=== PATIENT | female | born 1955 | race Caucasian/White ===

== ENCOUNTER 2018-01-14 06:20 | Day surgery (SDC) | payer OTHER ==
[~2018-01-14] VITALS: Ht 152.4 cm; Wt 91.2 kg
[~2018-01-14 06:20] MED LIST: ACETAMINOPHEN325 M1 PO; DSS100 MG PO; ESTROVEN REGU400 MCG PO; FOLGARD TABLET1 EAC1 PO; HYDROCHLOROTHIA25 MG PO; IBUPROFEN200 MG PO; IBUPROFEN800 MG PO; IRON18 MG PO; MINERAL OIL30 ML AD; MULTIVITAMINS1 EAC7 PO; NORCO 5-325 TA1 EACH PO; NORCO 7.5-3251 EACH PO; ONDANSETRON ODT4 MG PO; SENOKOT-S TABL1 EACH PO; SULINDAC200 MG PO; VITAMIN B125000 MCG PO; VITAMIN D1000 UNIT PO; VITAMIN D35000 UNIT PO; XARELTO20 MG PO; [UNRECOGNIZED DRUG - OTHER] PO
--- NOTE | 2018-01-14 08:04 | NUR ---
01/14/18 0804 Jayshree Munguia 0800 PT ARRIVED IN PACU SLEEPY WITH NO C/O'S. ABD SOFT AND PASSING FLATUS.
--- NOTE | 2018-01-14 09:15 | OR ---
[facility] [address] [place], [place] [address] Signed DATE OF OPERATION: 01/14/2018 SURGEON: Celia Whaley MD PREOPERATIVE DIAGNOSIS: History of adenomatous polyp of rectum, 2012. POSTOPERATIVE DIAGNOSIS: Sigmoid diverticulosis. PROCEDURE: Total colonoscopy to cecum. ANESTHESIA: Intravenous sedation fentanyl 100 mcg, Versed 4 mg. INDICATION: This 62-year-old white woman is a patient of Dr. Nadira Roy at the [place] [place] as well as Dr. Antoine Maharaj and Dr. Jane Metz locally. She underwent colonoscopy in 2012 where she was found to have an adenomatous polyp of the rectum. She is symptom-free at this time, but is here for surveillance colonoscopy. She understands the risks of bleeding, infection, and perforation and wished to proceed. FINDINGS: The prep was excellent. Complete colonoscopy was undertaken to the cecum without question. There were several diverticula of the sigmoid, but no sign of recurrent or new polyp. DESCRIPTION OF PROCEDURE: The patient was brought to the endoscopy suite and placed in the lateral decubitus position, given intravenous sedation to the point of slurred speech and nystagmus. Digital rectal examination was normal. An Olympus video colonoscope was passed in the rectum and manipulated throughout the colon, ultimately intubating the cecum itself. The ileocecal valve and appendiceal orifice were normal. Photographs were taken. The scope was carefully withdrawn from that point and examination throughout undertaken showed no sign of polyps, but did show diverticular changes of the sigmoid. The rectum was normal. There was no sign of recurrent polyp. The scope was removed and the patient was taken to recovery room in good condition. Electronically Signed By: CELIA WHALEY MD 01/14/18 0915 PATIENT NAME: ANILA DE LUNA OPERATIVE REPORT DATE OF : 57 REPORT #: [id number] PHYSICIAN: CELIA WHALEY MD PCP: ANTOINE MAHARAJ MD REPORT IS CONFIDENTIAL AND NOT TO BE RELEASED WITHOUT AUTHORIZATION [facility] [address] [place], [place] [address] Signed CONCLUDING DIAGNOSIS: Diverticulosis. No evidence of polyps. PLAN: Recommend repeat colonoscopy in 10 years, sooner if clinically indicated. Recommend also high-fiber diet. She will return to the ongoing care of Dr. Nadria Roy at [place] [place] as well as Dr. Maharaj and Dr. Metz. MD RACHEL Silva/PARIL /[id number] cc: Nadira Roy [facility] MD Antoine Iglesias MD Copies: JANE METZ MD, JONATHAN MD ~ Electronically Signed By: CELIA WHALEY MD 01/14/18 0915 PATIENT NAME: ANILA DE LUNA OPERATIVE REPORT DATE OF : 57 REPORT #: [id number] PHYSICIAN: CELIA WHALEY MD PCP: ANTOINE MAHARAJ MD REPORT IS CONFIDENTIAL AND NOT TO BE RELEASED WITHOUT AUTHORIZATION
== END 2018-01-14 08:32 | disposition home or self-care (01) ==
LOC: OPS 06:20 → DS 06:20 → OPS 06:45 → DS 06:45 → OPS 08:32
PROVIDERS: Surgery
PROC: 0DJD8ZZ Inspection of Lower Intestinal Tract, Via Natural or Artificial Opening Endoscopic (ICD-10-PCS; principal; 2018-01-14 06:45)
DX: Z12.11 Encounter for screening for malignant neoplasm of colon (principal); K57.30 Diverticulosis of large intestine without perforation or abscess without bleeding; I10 Essential (primary) hypertension; E66.9 Obesity, unspecified; Z88.5 Allergy status to narcotic agent; Z88.8 Allergy status to other drugs, medicaments and biological substances; Z79.899 Other long term (current) drug therapy; Z86.010 Personal history of colon polyps; Z68.37 Body mass index [BMI] 37.0-37.9, adult
CPT/HCPCS: 99153; G0500; J2250; J3010; J7120

== ENCOUNTER 2020-12-30 07:30 | Day surgery (SDC) | payer OTHER ==
--- NOTE | 2020-12-17 16:31 | NUR ---
DOS:12/30/20 STAIRS: TWO TO GET INTO THE HOME ONLY SHOWER: STEP INTO SHOWER WITH A BENCH WALKER: HAS FWW TOILET: HAS A BED SIDE COMMODE THAT SHE WILL USE OVER HER TOILET APPOINTMENTS AND PHYSICAL THERAPY: HER WILL BRING HER TO THEM
[~2020-12-30] VITALS: Ht 157.5 cm; Wt 87.0 kg
[~2020-12-30 07:30] MED LIST changes: +AMLODIPINE BES2.5 MG PO; +DITROPAN XL5 MG PO; +IRON240 MG PO; +K-TAB ER20 MEQ PO; +MENOPAUSE SUPPO20 MG PO; +ONCE DAILY1 EACH PO; +ULTRAM50 MG PO; +VIT C-ROSE HIP500 MG PO
[2020-12-30] MEDS ORDERED: XARELTO10 MG PO (10:58)
[2020-12-30] MEDS ORDERED: SENNA LAX8.6 MG PO (11:00)
[2020-12-30] MEDS ORDERED: GABAPENTIN300 MG PO (11:00)
[2020-12-30] MEDS ORDERED: OXYCODONE HCL5 MG PO (11:00)
[2020-12-30] MEDS ORDERED: CELECOXIB200 MG PO (11:00)
--- NOTE | 2020-12-30 11:35 | NUR ---
PT ARRIVED FROM PACU. REPORT RECEIVED FROM KAITLYN HOLDEN. PT ALERT AND ORIENTED AND REPORTS 4/10 PAIN IN RIGHT KNEE. PT DENIES NEED FOR PAIN MEDICATION STATING "THEY JUST GAVE ME SOMETHING." PT REPORTS PAIN IS "GETTING BETTER I SIT HERE." CMS INTACT, PULSES STRONG. LUNG SOUNDS CLEAR. HEART TONES REGULAR. PT DENIES NAUSEA AND IS TOLERATING SIPS OF FLUIDS AND SALTINE CRACKERS. DRESSING TO RIGHT KNEE C/D/I. CRYO CUFF, FOOT PUMPS AND ROSELYN HOES IN PLACE. PT DENIES REQUESTS OR COMPLAINTS AT THIS TIME. BED RAILS UP. CALL LIGHT WIHTIN REACH. PTS FAMILY AT BEDSIDE.
--- NOTE | 2020-12-30 11:48 | NUR ---
12/30/20 1148 Jayshree Munguia 1101 PT ARRIVED IN PACU AWAKE WITH NO C/O'S. ON QUE SET AT 4ML/HR FROM SURGERY. CRYO CUFF PLACED ON R KNEE. 1115 PT ASKING QUESTIONS ABOUT SURGERY/CRYO CUFF/ON QUE AND DC HOME. ALL QUESTIONS ANSWERED AND REMINED WE WILL GO OVER THEM AGAIN BEFORE DC HOME. 1124 TORADOL 30MG GIVEN IVP PER DR ORDERS. 1135 TO DS. REPORT GIVEN TO AJ HILARIO RN.
--- NOTE | 2020-12-30 12:08 | NUR ---
REPORT GIVEN TO KAITLYN SMITH, WHO IS ASSUMING CARE OF PT. QUESTIONS ASKED AND ANSWERED.
--- NOTE | 2020-12-30 12:47 | NUR ---
PROVIDED PATIENT WITH COFFEE. RATES PAIN 0/10 ON PAIN SCALE. PATIENT AWAKE CONVERSING WITH . DRESSING TO RIGHT KNEE C/D/I. CRYO IN PLACE. STRONG PEDAL PULSE. PATIENT REPORTS NO URGE TO URINATE AT THIS TIME. WILL CALL NURSING STAFF WHEN READY TO GET UP. NO OTHER NEEDS AT THIS TIME. CALL LIGHT WITHIN REACH.
--- NOTE | 2020-12-30 13:11 | NUR ---
TXA ADMINISTERED. PATIENT HAD EMESIS OF 200 ML. ORANGE SUBTANCE. ADMINISTERED 4MG IV ZOFRAN PER VERABL ORDER JCARLOS BRAGG
[2020-12-30] MEDS ORDERED: ULTRAM50 MG PO (13:16)
--- NOTE | 2020-12-30 13:16 | NUR ---
NOTIFIED DR. ROCHA PATIENT REQUEST TO BE SENT HOME WITH TRAMADOL INSTEAD OF OXYCODONE. DR. ROCHA VERBALIZED HE WOULD SEND PERSCRIPTION FOR TRAMADOL. NOTIFIED PATIENT OF CHANGE.
--- NOTE | 2020-12-30 13:37 | NUR ---
PATIENT CONTINUING TO HAVE EMESIS. REPORTED TO JCARLOS KO. NEW ORDERS TO TREAT. NOTIFIED PATIENT, WHO REPORTS NAUSEA IMPROVED.
--- NOTE | 2020-12-30 14:20 | NUR ---
PATIEN TO BATHROOM, VOIDED WELL. PHYSICAL THERAPY TO FLOOR, TOOK PATIENT TO MEDICAL SURGICAL FLOOR TO PRACTICE STAIRS.
--- NOTE | 2020-12-30 15:14 | NUR ---
REPORT TO DR. ROCHA VIA TELEPHONE. DR. ROCHA VERBALIZED OKAY FOR PATIEN TO BE DISCHARGED.
--- NOTE | 2020-12-30 15:50 | NUR ---
PROVIDED PATIENT WITH DISCHARGE INSTRUCTION, DISCUSSED ICE MACHINE AND PROVIDED DEMONSTRATION. DISCUSSED ON-CUE PUMP, PATIENT VERBALIZED UNDERSTANDING. PATIENT REPEATED INFORMATION, AND QUESTIONS AND CONCERNS ADDRESSED. PROVIDED WHEELCHAIR RIDE TO FRONT. PATIENT TRANSFERED INTO POV WELL.
--- NOTE | 2021-01-03 07:27 | OR ---
[facility] [address] [place], [place] [address] Signed DATE OF OPERATION: 12/30/2020 SURGEON: Dipak Tafoya MD PREOPERATIVE DIAGNOSIS: Severe degenerative joint disease right knee. POSTOPERATIVE DIAGNOSIS: Severe degenerative joint disease right knee. PROCEDURE PERFORMED: Right total knee arthroplasty. TRACTOR TRAILER MECHANIC: Nena Yu PA-C. Nena was present and critical portions of procedure. ANESTHESIA: Spinal. BLOOD LOSS: 175 mL. IMPLANTS: Michelle Triathlon size 2 femur, size 1 tibia, one 9 mm poly, and a 29 mm patella. BRIEF HISTORY: Anila is a 65-year-old female with progressive worsening of knee arthritis. She had significant nonoperative treatment without substantial relief. Risks and benefits of operative treatment were discussed with her and she elected to proceed. DESCRIPTION OF PROCEDURE: Once consent was obtained she was taken to the operating room, after adequate anesthesia she was placed on operating room table. All downside pressure points well padded. Hip bump was placed. The leg was prepped and draped in a standard sterile fashion. She had an old incision from prior meniscectomy that was incorporated into the anterior midline incision. This was carried through the skin and subcutaneous tissue. A subvastus approach was undertaken and the arthrotomy was performed and the MCL was elevated of a sleeve around the posteromedial corner. The infrapatellar fat pad was excised and the patella was mobilized laterally. The knee was flexed and the ACL and an anterior horns Electronically Signed By: DIPAK TAFOYA MD 01/03/21 0727 PATIENT NAME: ANILA DE LUNA OPERATIVE REPORT DATE OF : 57 REPORT #: [id number] PHYSICIAN: DIPAK TAFOYA MD PCP: DIRK DEL VALLE MD REPORT IS CONFIDENTIAL AND NOT TO BE RELEASED WITHOUT AUTHORIZATION [facility] [address] [place], [place] [address] Signed of menisci were transected. The checkpoints were placed in the femur and tibia and the computer rays; the first one was placed in the medial femoral condyle intraincisionally. The tibial wound was placed percutaneously one handsbreadth below the tibial tuberosity. The leg was registered with the computer followed by the fine anatomic points of the knee. The Gayla valgus ligamentous laxity was then assessed. She took a fair amount of changing both varus and rotational changes on the prosthesis to achieve ligamentous balance. Once this was accomplished, the robot was brought in and the straight cuts were made with care taken to protect the patellar tendon and MCL. The blade was changed to an angle cutter. The last two angle cuts were made and all excess bone was removed as were any remaining osteophytes. The trials were positioned and the knee was taken from 0-130 degrees of flexion with good stability throughout. The patella was cut sized and drilled for a 29 mm patella. She had excellent bone stock, so a noncemented prosthesis was selected. The tibia was impacted in position first followed by the polyethylene. The femur was then impacted. The knee was extended and nicely loaded. The patella was clamped into position and the clamp was removed. The knee was pulse lavaged using 3 L of normal saline with 500 mL of Aricept in the middle. The On-Q pain pump was then placed percutaneously into the adductor canal from the suprapatellar pouch. The arthrotomy was then closed using #2 Stratafix, subcutaneous tissue with #0 Stratafix, and skin with 3-0 Monocryl and Steri-Strips. Wound was dressed with an Acticoat 7 dressing, ABD, and Marlo wrap. She tolerated the procedure well. All sponge, needle, and instrument counts were correct. Dipak Tafoya MD BA/MODL /[id number] Copies: ~ Electronically Signed By: DIPAK TAFOYA MD 01/03/21 0727 PATIENT NAME: ANILA DE LUNA OPERATIVE REPORT DATE OF : 57 REPORT #: [id number] PHYSICIAN: DIPAK TAFOYA MD PCP: DIRK DEL VALLE MD REPORT IS CONFIDENTIAL AND NOT TO BE RELEASED WITHOUT AUTHORIZATION
== END 2020-12-30 15:50 | disposition home or self-care (01) ==
LOC: DS 07:30
PROVIDERS: ATTEND Specialist
PROC: 0SRC0JZ Replacement of Right Knee Joint with Synthetic Substitute, Open Approach (ICD-10-PCS; principal; 2020-12-30 09:15)
DX: M17.11 Unilateral primary osteoarthritis, right knee (principal); G89.18 Other acute postprocedural pain
CPT/HCPCS: 01402; 64447; 64450; 64454; 76942; 80048; 97161; C1713; C1776; J0690; J1885; J2001; J2250; J2405; J2550; J2704; J2795; J7040; J7121

== ENCOUNTER 2025-03-12 06:50 | Day surgery (SDC) | payer OTHER ==
[2025-03-12] VITALS (10 sets, daily range): BP systolic 124–152; BP diastolic 62–85
[~2025-03-12] VITALS: Ht 157.5 cm; Wt 91.0 kg
[~2025-03-12 06:50] MED LIST changes: -AMLODIPINE BES2.5 MG PO; +CELECOXIB200 MG PO; +GABAPENTIN300 MG PO; +HYDROCHLOROTH12.5 MG PO; -HYDROCHLOROTHIA25 MG PO; +LACTATED RINGER'S 1,000 ML IV SCH; +MULTI-VITAMIN1 EAC1 PO; +NORVASC5 MG PO; -ONCE DAILY1 EACH PO; +OXYCODONE HCL5 MG PO; +POTASSIUM CHLO10 MEQ PO; +ROSUVASTATIN CA10 MG PO; +Ropivacaine HCl 20 MG/10 ML AMP ONE; +SENNA LAX8.6 MG PO; +SODIUM CHLORIDE 0.9% 500 ML IV ONE; +TYLENOL EXTRA500 MG PO; +VITAMIN D325 MCG PO; +XARELTO10 MG PO
[2025-03-12] MEDS ORDERED: PANTOPRAZOLE SODIUM 40 MG TABEC PO SCH (07:00)
[2025-03-12] MEDS ORDERED: CEFAZOLIN SODIUM 2 GM/20 ML SYR IV SCH ×2 (07:00→15:00)
[2025-03-12] MEDS ORDERED: ROPIVACAINE IN 0.9% SOD CHL/PF 545 ML ELS.PMP.HR IRRIGATION SCH (07:00)
[2025-03-12] MEDS ORDERED: TRANEXAMIC ACID IN NACL,ISO-OS 1,000 MG/100 ML PIGGYBACK IV SCH ×2 (07:00→11:15)
[2025-03-12] MEDS ORDERED: GABAPENTIN 600 MG TAB PO SCH (07:00)
[2025-03-12] MEDS ORDERED: IBLOOD GLUCOSE TEST STRIP 1 EA TEST VI PRN (07:00)
[2025-03-12] MEDS ORDERED: INTRA-ARTICULAR ANALGESIC INJECTION XX SCH (07:00)
[2025-03-12] MEDS ORDERED: OXYCODONE HCL 5 MG TAB PO SCH (07:00)
[2025-03-12] MEDS ORDERED: LIDOCAINE HCL 1% 5 ML SDV INJ ONE (07:00)
[2025-03-12] MEDS ORDERED: DEXAMETHASONE SOD PHOS 10 MG/ML VIAL ONE (07:09)
[2025-03-12] MEDS ORDERED: ARTHRITIS PAIN150 GM TOP (07:09)
[2025-03-12] MEDS ORDERED: Ropivacaine HCl 0.5% 30 ML VIAL ONE (07:10)
[2025-03-12] MEDS ORDERED: LIDOCAINE HCL 0.5% 50 ML SDV ONE (07:29)
[2025-03-12] MEDS ORDERED: LIDOCAINE HCL 2% 5 ML SDV ONE (07:29)
--- NOTE | 2025-03-12 07:40 | NUR ---
VISITED DURING SPIRITUAL CARE ROUNDS. PT SUPPORTED BY FAMILY IN ROOM. ALL IN RELATIVELY GOOD SPIRITS; NO IMMEDIATE NEEDS. BLEACHING SUPERVISOR PROVIDED SUPPORTIVE PRESENCE, HOSPITALITY, PRAYER. PT AND FAMILY EXPRESSED GRATITUDE.
[2025-03-12] MEDS ORDERED: TRAMADOL HCL 50 MG TAB ONE (07:54)
[2025-03-12] MEDS ORDERED: LIDOCAINE HCL 2% 20 MG/ML VIAL INJ ONE (07:59)
[2025-03-12] MEDS ORDERED: TRAMADOL HCL 50 MG TAB PO ONE (08:00)
[2025-03-12] MEDS ORDERED: KETOROLAC TROMETHAMINE 30 MG/ML VIAL IV PRN (08:15)
[2025-03-12] MEDS ORDERED: MIDAZOLAM HCL 2 MG/2 ML VIAL ONE (08:31)
[2025-03-12] MEDS ORDERED: ASPIRIN 325 MG TAB PO SCH (09:00)
[2025-03-12] MEDS ORDERED: KETAMINE in NS 50 MG/5 ML SYR ONE (09:01)
--- NOTE | 2025-03-12 10:37 | NUR ---
03/12/25 Beth Menchaca HOB IS ELEVATED. PATIENT IS TALKING WITH ME.
--- NOTE | 2025-03-12 10:57 | NUR ---
PT ARRIVES TO DS FROM PACU. PT REPORTS PAIN IS TOLERABLE AT 7/10 AND DESCRIBES IT ACHEY ON LATERAL SIDE OF KNEE. PT AWAKE AND ORIENTED, RESPIRATIONS EVEN AND UNLABORED, NO SIGNS OF DISTRESS. REPORT RECEIVED FROM CASSANDRA SAHNI W/FAMILY AT BEDSIDE. PT ABLE TO WIGGLE RT FT> LFT FT. PT HAS SENSATION THROUGHOUT BLE, MINOR NUMBNESS IN ANTERIOR ASPECT OF LLE AND HEEL. CRACKERS, ICE WATER, AND APPLESAUCE PROVIDED. PT STATES NO FURTHER NEEDS OR QUESTIONS AT THIS TIME. CALL LIGHT WITHIN REACH, FAMILY REMAINS AT BEDSIDE.
[2025-03-12] MEDS ORDERED: NALOXONE HCL 0.4 MG SYR IV PRN (11:15)
[2025-03-12] MEDS ORDERED: fentaNYL citrate 50 MCG/ML SDV IV PRN (11:15)
[2025-03-12] MEDS ORDERED: ACETAMINOPHEN 1,000 MG/100 ML VIAL IV PRN (11:15)
[2025-03-12] MEDS ORDERED: MEPERIDINE HCL 25 MG/1 ML VIAL IV PRN (11:15)
[2025-03-12] MEDS ORDERED: KETOROLAC TROMETHAMINE 30 MG/ML VIAL IV ONE (11:15)
--- NOTE | 2025-03-12 12:12 | NUR ---
IN PT ROOM FOR VS AND ASSESSMENT. PT REPORTS PAIN HAS DECREASED AND REMAINS TOELRABLE AT THIS TIME. NO ACUTE CHANGES FROM PREVIOUS ASSESSMENT. PT CONTINUES TO BE UNABLE TO HAVE DORSAL FLEXION ON LFT FT. PT ABLE TO WIGGLE TOES, ABLE TO FULLY MOVE RT FOOT. PT ATE 50% OF SANDWICH AND 100% OF CRACKERS/APPLESAUCE. PT REPORTS NO FURTHER QUESTIONS OR NEEDS AT THIS TIME. CALL LIGHT WITHIN REACH. PT UPDATED THAT PHYSICAL THERAPY WOULD NOT BE PRESENT UNTIL AFTER 3PM D/T SCHEDULING PROBLEMS, FAMILY UNDERSTANDS.
--- NOTE | 2025-03-12 13:10 | NUR ---
IN PT ROOM FOR ASSESSMENT AND VS. NO ACUTE CHANGES FROM PREVIOUS ASSESSMENT. PT CONTINUES TO BE UNABLE TO PERFORM DORSIFLEXION ON LFT FOOT AND STATES NUMBNESS IS FROM MID BROWN DOWN TO MID FOOT ANTERIOR. PT REPORT PAIN CONTINUES TO DECREASE AND REMAINS TOLERABLE AT THIS TIME. PT TRYING TO EXERCISE BLE. PT REPORTS NEED TO URINE VOID. D/T LACK OF DORSIFLEXION, 2 RN FULL ASSIST AND FWW USED TO STAND/PIVOT TO BEDSIDE COMMODE. PT URINE VOIDS 150 ML OF CLEAR/YELLOW URINE. PT STAND/PIVOT W/2RN ASSIST AND FWW BACK TO BED. AJ BUSCH CALLED AND UPDATED ON PT CIRCUMSTANCES W/LACK OF DORSIFLEXION AND INABILITY TO WORK W/PHYSICAL THERAPY AT THIS TIME. PT STATES NO FURTHER NEEDS OR QUESTIONS. WARM BLANKETS PROVIDED. PT ENCOURAGED TO DRINK FLUIDS AND USE INCENTIVE SPIROMETER, EDUCATION PROVIDED. NO FAMILY AT BEDSIDE AT THIS TIME. CALL LIGHT WITHIN REACH. NO NEW ORDERS RECEIVED FROM AJ BUSCH AT THIS TIME.
--- NOTE | 2025-03-12 14:00 | NUR ---
IN PT ROOM FOR UPDATE ON PLAN. PT DEMONSTRATES APPROPRIATE USED OF INCENTIVE SPIROMETER X2 W/BEVEL TO THE TOP. PT CONTINUES TO REPORT PAIN TOLERABLE. ATTEMPTED TO ASSIST PT W/DORSIFLEXION, PT HAS ZERO STRENGTH IN PERFORMING MOTION. PT AND FAMILY LET KNOW THAT IF STRENGTH DOES NOT RETURN FOR MOVEMENT, SHE WILL BE NOT BE ABLE TO WORK PHYSICAL THERAPY AND MAY STAY THE NIGHT. PT AND FAMILY AGREEABLE TO PLAN OF CARE. PT AND PT FAMILY STATE NO FURTHER QUESTIONS AT THIS TIME. CALL LIGHT WITHIN REACH.
[2025-03-12] MEDS ORDERED: GABAPENTIN 300 MG CAP PO SCH (15:00)
[2025-03-12] MEDS ORDERED: TRAMADOL HCL 50 MG TAB PO PRN (15:00)
--- NOTE | 2025-03-12 15:09 | NUR ---
1459- ZPFRAN GIVEN FOR PT POST OPERATIVE EMESIS. SURGICAL SITE SHOWS A SMALL AMOUNT OF RED DRAINAGE AROUND ON-Q PUMP TUBING. PT REPORTS 2/10 PAIN AND SOME NAUSEA. PT USING INCENTIVE SPIROMETER. PLAN DISCUSSED WITH PT FOR GOING TO MED/SURG AND SHE IS UNDERSTANDING. FAMILY AT THE BED SIDE. ALL QUESTIONS AND CONCERNS ANSWERED. CRYOCUFF PLUGGED IN AND ON, AND SCD'S IN PLACE.
--- NOTE | 2025-03-12 16:37 | NUR ---
1630- PT IS TRANSFERED OVER TO MED/SURG FLOOR ROOM 113. BEDSIDE REPORT GIVEN TO MED/SURG NURSE. PT IS ABLE TO TRANSFER TO BED WITH ASSISTANCE FROM PHYSICAL THERAPY AND OCCUPATIONAL THERAPY AT BEDSIDE. FAMILY OUTSIDE OF THE ROOM. ALL QUESTIONS AND CONCERNS ANSWERED. ALL BELONGINGS ARE WITH PT IN HER ROOM. BED IS LOCKED IN THE LOWEST POSTION. PHYSCIAL THERAPY WORKING WITH PT AT THIS TIME.
--- NOTE | 2025-03-12 16:43 | NUR ---
PT ARRIVES TO [facility] VIA GURNEY ALERT AND INTERACTIVE. FAMILY PRESENT X2. ORIENTED TO ROOM BED CONTROLS AND ROUTINE. FRESH H20 TO BEDSIDE.
--- NOTE | 2025-03-12 17:16 | NUR ---
PT HAS 400 ML EMESIS, PER DAY REGIONAL DRIVER NAUSEA IS A CHRONIC PROBLEM. PT HAD ZOFRAN AROUND 1500 REQUESTS A WARM FLAT COKE AND CRACKERS AT THIS TIME. PROVIDED. PT UP TO BSC SBA WITH FWW. FAMILY CONTINUE TO BE PRESENT
--- NOTE | 2025-03-12 17:35 | NUR ---
NO FURTHER NAUSEA PT STATES IT "HAS PASSED" DENIES EVENING MEAL EASTING CRACKERS AND SIPPING WARM FLAT COKE.
--- NOTE | 2025-03-12 19:05 | NUR ---
REPORT RECEIVED FROM VARSHA SAHNI. UP TO [facility] WITH DAYSHIFT MINIATURE SET DESIGNER. pt HAD A LITTLE EMESIS. pt BACK TO BED AND STATE SHE IS STILL NAUSEOUS BUT FEELS A LITTLE BETTER. THIS RN MADE A PLAN TO CHECK IN WITH pt LATER TO REASSESS NAUSEA. pt DENIES ANY OTHER NEEDS AT THIS TIME. BOARD UPDATED. CALL LIGHT WITHIN REACH. CRYO CUFF IN PLACE. SCD'S ON.
--- NOTE | 2025-03-12 20:00 | NUR ---
pt CALLED AND HAD 100mL OF EMESIS IN AN EMESIS BAG. THIS RN GOT pt NEW COLD RAG AND NEW EMESIS BAG. pt STATES THE WAVE OF EMESIS IS OVER AND SHE FEELS A LITTLE BETTER BUT IS STILL NAUSEOUS. pt DENIES ANY OTHER NEEDS AT THIS TIME. CALL LIGHT WITHIN REACH.
--- NOTE | 2025-03-12 20:25 | NUR ---
THIS RN CALLED MD ROCHA FOR PRN NAUSEA. NEW ORDERS RECEIVED AND VERIFIED WITH REPEAT BACK METHOD.
[2025-03-12] MEDS ORDERED: ONDANSETRON 4 MG TAB ODT SL PRN (20:30)
[2025-03-12] MEDS ORDERED: SENNOSIDES 1 TAB PO SCH (21:00)
--- NOTE | 2025-03-12 21:00 | NUR ---
ASSESSMENT AND VITAL SIGNS DONE. ON Q PUMP SET AT 4ML PER/HR PER ORDER. SCD'S ON. CRYO CUFF ON AND FILLED WITH FRESH ICE. LLE DRESSING HAS MINIMAL DRAINAGE AND NO NEW DRAINAGE. ROSELYN HOSE ON. pt DENIES ANY PAIN AT THIS TIME. pt C/O NAUSEA. PRN ANTINAUSEA MEDS ADMINISTERED. SCHEDULED MEDS ADMINISTERED. WATER REFRESHED. pt DENIES ANY OTHER NEEDS AT THIS TIME. CALL LIGHT WITHIN REACH.
--- NOTE | 2025-03-12 23:00 | NUR ---
IN RM TO ADMINISTER IV ABX PER ORDER. pt RESTING IN THE BED. NO OTHER NEEDS AT THIS TIME. CALL LIGHT WITHIN REACH.
--- NOTE | 2025-03-13 00:48 | NUR ---
pt CALLED TO USE THE BSC. 1PA WITH FWW. pt ABLE TO MOVE LEFT FOOT A LITTLE MORE PER pt. pt BACK TO BED. CRYO CUFF ON. SCD'S ON. ROSELYN HOSE ON. pt DENIES ANY OTHER NEEDS AT THIS TIME. CALL LIGHT WITHIN REACH.
[2025-03-13 01:47] VITALS: BP 123/61
[2025-03-13 01:49] VITALS: BP 123/61
--- NOTE | 2025-03-13 01:58 | NUR ---
IN RM TO DO VITAL SIGNS WITH CERTIFIED ORTHOPTIST. CRYO CUFF FILLED WITH FRESH ICE. SCD'S ON. ROSELYN HOSSelene ON. pt DENIES ANY OTHER NEEDS AT THIS TIME. CALL LIGHT WITHIN REACH.
--- NOTE | 2025-03-13 03:47 | NUR ---
pt RESTING IN THE BED WITH EYES CLOSED. RR EVEN AND UNLABORED. CALL LIGHT WITHIN REACH.
[2025-03-13 05:16] VITALS: BP 126/65
[2025-03-13 05:19] VITALS: BP 126/65
--- NOTE | 2025-03-13 06:24 | NUR ---
pt RESTED THROUGH OUT THE NIGHT. PRN PAIN MEDS ADMINISTERED WHEN NEEDED. pt 1PA WITH FWW TO BSC. SCD'S ON. ROSELYN HOSE ON. CRYO CUFF FILLED WITH ICE THROUGH OUT THE NIGHT. SCHEDULED MEDS ADMINISTERED WHEN ORDERED. NO OTHER NEEDS AT THIS TIME.
--- NOTE | 2025-03-13 07:01 | OR ---
[facility] [address] [facility] [place], [place] [address] Signed DATE OF OPERATION: 03/12/2025 SURGEON: Dipak Tafoya MD PREOPERATIVE DIAGNOSIS: Severe degenerative joint disease, left knee. POSTOPERATIVE DIAGNOSIS: Severe degenerative joint disease, left knee. PROCEDURE PERFORMED: Left total knee arthroplasty with Calin partially. GRAZING AIDE: Nena Yu PA-C. Nena was present and critical for all portions of procedure. ANESTHESIA: Spinal. BLOOD LOSS: 173 mL. TOURNIQUET TIME: Zero. IMPLANTS: Cando Triathlon size 3 femur, 2 tibia, 10 mm polyethylene, and a 28 mm patella. BRIEF HISTORY: Anila is a 69-year-old female with severe arthritis, primarily medial compartment with some varus. Risks and benefits of operative treatment were discussed with her after nonoperative treatment failed to control her symptoms. She elected to proceed. DESCRIPTION OF PROCEDURE: Once consent was obtained, she was taken to the operating room. After adequate anesthesia, she was placed on operating room table. All downside pressure points were well padded. The left leg was placed on hip bump and prepped and draped in a standard sterile fashion. The knee was approached through a standard anterior midline incision. This was carried through skin and subcutaneous tissue and flaps were developed medially Electronically Signed By: DIPAK TAFOYA MD 03/13/25 0701 PATIENT NAME: ANILA DE LUNA OPERATIVE REPORT DATE OF : 57 REPORT #: [id number] PHYSICIAN: DIPAK TAFOYA MD PCP: LAVONNE NORRIS REPORT IS CONFIDENTIAL AND NOT TO BE RELEASED WITHOUT AUTHORIZATION [facility] [address] [place], [place] [address] Signed and laterally. A low mid vastus arthrotomy was performed and the infrapatellar fat pad was excised. The MCL was elevated as a sleeve around the posteromedial corner. The anterior horns of menisci were transected as was the ACL. PCL was found to be intact. The computer arrays for the SmartExposee system were placed in the distal femur and proximal tibia and leg was registered with the computer. The fine anatomic points of the knee registered with the computer and then the four ligamentous poses were taken. Slight adjustments were made to the rotation of the prosthesis. The robot was then brought in. The tibial cut was made with care taken to protect the patellar tendon and MCL. The posterior cut was made on the femur and at that point, the robot simply stopped working. It would not take commands. We switched through the power unit out and again it would not work. We then elected to finish the procedure with manual instrumentation. The hole for the distal femur was drilled into the medullary canal. The medullary alignment guide was then positioned with the distal cutting guide. The cutting guide was set to 9 mm distal cut. The distal cutting guide was then pinned into position. The distal cut was made. The 4-in-1 cutting block was then positioned in 3 degrees of external rotation, which did match our computer plan. The anterior cut was made followed by the anterior and posterior chamfer cuts. Once this was completed, the bony remnants were removed and the osteophytes were removed. The osteophytes were removed off the posterior femur with no release was performed. The trials were then positioned. Knee was taken from 0-130 degrees with good stability. The patella was cut, sized, and drilled for a 28 cemented patella. The distal femoral drill holes were completed, followed by the keel punch and drill guide for the tibia. The implants were obtained. The tibia was impacted into position first followed by the polyethylene. The femur was then impacted. The knee was extended and loaded. The cement was mixed for the patella and when it reached proper consistency, the patella was cemented into position and held with a clamp until 11 minute gregg. All excess cement was removed. The final stability check and range of motion was good. The patella tracked well. The wound was copiously irrigated with one bottle of Irrisept followed by normal saline. The periarticular soft tissues were injected with 80 mL ropivacaine Toradol mixture. The On-Q pain pump was percutaneously placed into the adductor canal from the suprapatellar pouch. The arthrotomy was then closed using combination of #2 FiberWire, #2 Stratafix, the subcutaneous tissue with 0 Stratafix and the skin with 3-0. The wound was sealed with LiquiBand and Steri-Strips and dressed with an Acticoat-7 dressing, ABDs, and Marlo wrap. She tolerated the procedure well. All sponge, needle, and instrument counts were correct. Dipak Tafoya MD Electronically Signed By: DIPAK TAFOYA MD 03/13/25 0701 PATIENT NAME: ANILA DE LUNA OPERATIVE REPORT DATE OF : 57 REPORT #: [id number] PHYSICIAN: DIPAK TAFOYA MD PCP: LAVONNE NORRIS REPORT IS CONFIDENTIAL AND NOT TO BE RELEASED WITHOUT AUTHORIZATION [address] [place] [address] Signed /[facility] /[id number] Copies: ~ Electronically Signed By: DIPAK TAFOYA MD 03/13/25 0701 PATIENT NAME: ANILA DE LUNA OPERATIVE REPORT DATE OF : 57 REPORT #: [id number] PHYSICIAN: DIPAK TAFOYA MD PCP: LAVONNE NORRIS REPORT IS CONFIDENTIAL AND NOT TO BE RELEASED WITHOUT AUTHORIZATION
--- NOTE | 2025-03-13 07:27 | NUR ---
PT ALERT AND INTERACTIVE AT TIME OF SHIFT REPORT. REQUESTS ADDITIONAL PAIN MEDICATION RATES PAIN 01/25. FRESH H20 TO BEDSIDE. PT ABLE TO MOVE LEFT FOOT APPROPRIATELY THIS MORNING. FAMILY PRESENT X2 CALL LIGHT IN REACH
[2025-03-13] MEDS ORDERED: DICLOFENAC SOD 75 MG TABEC PO SCH (08:00)
[2025-03-13] MEDS ORDERED: CEFUROXIME500 MG PO (08:22)
[2025-03-13] MEDS ORDERED: CELEBREX200 MG PO (08:23)
[2025-03-13] MEDS ORDERED: NEURONTIN300 MG PO (08:26)
[2025-03-13] MEDS ORDERED: TRAMADOL HCL50 MG PO (08:28)
--- NOTE | 2025-03-13 08:45 | NUR ---
BEFORE WE ENTERED PATIENTS ROOM, PATIENT WAS IN HALLWAY WORKING WITH PHYSCIAL THERAPY. WHEN FINISHED WE HAD HER DO HER AM CARE AND WE ALSO FILLED HER CRYO. PATIENT IS NOW EATING BREAKFAST.
--- NOTE | 2025-03-13 08:54 | NUR ---
MED REC COMPLETE
[2025-03-13] MEDS ORDERED: ATORVASTATIN 20 MG TAB PO SCH (09:00)
[2025-03-13] MEDS ORDERED: TRAMADOL HCL 50 MG TAB PO PRN (09:00)
[2025-03-13] MEDS ORDERED: hydroCHLOROthiazide 25 MG TAB PO SCH (09:00)
[2025-03-13] MEDS ORDERED: POTASSIUM CHLORIDE 10 MEQ TABCR PO SCH (09:00)
[2025-03-13] MEDS ORDERED: AMLODIPINE BESYLATE 5 MG TAB PO SCH (09:00)
[2025-03-13] MEDS ORDERED: CHOLECALCIFEROL 1,000 UNIT TAB PO SCH (09:00)
--- NOTE | 2025-03-13 09:04 | NUR ---
P/T WELL TOLERATED. PAIN IS UNDER CONTROL PER PT REPORT. ON Q SITE LEAKING BLOOD ONTO BRIDGET BANDAGE. FRESH ABD AND BRIDGET APPLIED. PT DENIES NAUSEA THIS MORNING AND IS EATING HEARTILY
--- NOTE | 2025-03-13 09:27 | NUR ---
UR CLINICAL REVIEW: [facility] REVIEW MEETS EXTENDED STAY RECOVERY FOR TKR WITH NEED FOR PT/OT [facility] EXTENDED STAY 03/12/25 @ 1443 ORDER MATCHES REG NO AUTH REQUIRED PER GA GUIDELINES PATIENT TO DC TO HOME TODAY FOLLOWING PT/OT.
[2025-03-13 09:37] VITALS: BP 127/57
[2025-03-13] MEDS ORDERED: ASPIRIN EC325 MG PO (09:41)
--- NOTE | 2025-03-13 09:41 | NUR ---
BUDDY'Buck OWENS AND TOMEKA CHARTED VITAL SIGNS AND I&O'S FOR PATIENT IN PREPARATION FOR DISCHARGE. BUDDY OWENS TIDIED UP ROOM WHILE TOMEKA CHARTED. PATIENT IS CURRENTLY LAYING IN BED WAITING FOR FINAL STEPS. CALL LIGHT WITHIN REACH.
--- NOTE | 2025-03-13 09:44 | NUR ---
REVIEWED CRYO CUFF, PT STATES SHE IS FAMILIAR WITH IT AND HAS USED IT BEFORE. WENT THROUGH DC INSTRUCTIONS LINE BY LINE HIGHLIGHTED APPOINTMENTS AND POINTS OF SPECIAL INTREST. PT VERBALIZES UNDERSTANDING. SHE WORKED WITH BOTH PT/OT TODAY DRESSED HERSELF AND DID WELL. PT VERBALIZES UNDERSTANDING OF DC INSRUCTIONS DENIES QUESTIONS. IS HERE TO TAKE HER HOME IN HIS VEHICLE W/C RIDE TO THE CAR FROM STAFF. ALL PERSONAL ITEMS PACKED AND IN HER POSSESSION SHE BROUGHT NO VALUABLES TO THE HOSPITAL.
--- NOTE | 2025-03-13 09:45 | NUR ---
MED REC COMPLETE
[2025-03-13 09:49] VITALS: BP 127/57
--- NOTE | 2025-03-13 10:15 | NUR ---
Spoke with Poonam. She states she lives alone, has 2 steps into her home. He daughter and family will assist her. She has a walker, BSC, and cane. She had her other knee surgery last year. She denies any needs. Foot drop has resolved and is ready to dc today. [facility] will transport her. Pt denies any needs. NO financial concerns or safety concerns.
== END 2025-03-13 10:13 | disposition home or self-care (01) ==
LOC: DS 06:50 → MS 16:25 → DS 03-13 10:13
PROVIDERS: ATTEND Specialist
PROC: 0SRD0JZ Replacement of Left Knee Joint with Synthetic Substitute, Open Approach (ICD-10-PCS; principal; 2025-03-12 09:15)
DX: M17.12 Unilateral primary osteoarthritis, left knee (principal); E78.00 Pure hypercholesterolemia, unspecified; I10 Essential (primary) hypertension; Z66 Do not resuscitate; Z79.899 Other long term (current) drug therapy; Z88.5 Allergy status to narcotic agent; Z91.048 Other nonmedicinal substance allergy status; Z90.49 Acquired absence of other specified parts of digestive tract
CPT/HCPCS: 0055T; 27447; 01402; 64447; 73560; 96374; 97110; 97161; 97166; 97530; 97535; A9270; C1713; C1776; J0690; J1100; J2003; J2250; J2405; J2704; J2795; J3490; J7040; J7121; J7999